=== PATIENT | male | born 1950 | race African-American/Black ===

== ENCOUNTER 2023-10-08 02:25 | Inpatient (IN) | payer BC ==
[~2023-10-08] VITALS: Ht 172.7 cm; Wt 72.1 kg
[2023-10-08] MEDS: MORPHINE SULFATE 4 MG/ML INJ (FOR IV/IM USE) IV STA (03:04)
[2023-10-08] MEDS: SODIUM CHLORIDE 0.9% 1,000 ML IV ONE (03:04)
[2023-10-08] MEDS: ONDANSETRON HCL 4MG/2ML INJ IV STA (03:04)
[2023-10-08 03:17] LABS: BASOPHILS % 0.2 % (0.0-2.0); CHLORIDE 105 mEq/L (98-107); EOSINOPHILS % 0.7 % (0.0-5.0); HEMATOCRIT. 46.6 % (42.0-52.0); HEMOGLOBIN. 15.5 g/dL (14.0-18.0); LYMPHOCYTES % 11.8 % (20.0-50.0); MEAN CORPUSCULAR HEMOGLOBIN 31.1 pg (28.0-32.0); MEAN CORPUSCULAR HGB CONC 33.3 g/dL (31.0-37.0); MEAN CORPUSCULAR VOLUME 93.5 fL (80.0-94.0); MEAN PLATELET VOLUME 7.5 fl (7.4-10.4); MONOCYTES % 3.1 % (2.0-8.0); NEUTROPHILS % 84.2 % (40.0-76.0); PLATELET 257 x1000/uL (130-400); POTASSIUM 3.1 mEq/L (3.5-5.1); RED BLOOD CELL COUNT 4.98 mill/uL (4.7-6.1); RED CELL DISTRIBUTION WIDTH 13.9 % (11.6-14.6); SODIUM 139 mEq/L (136-145)
[2023-10-08 03:18] LABS: CALCIUM 9.8 mg/dL (8.7-10.4); CARBON DIOXIDE 25 mEq/L (21-32)
[2023-10-08 03:23] LABS: GLUCOSE 161 mg/dL (70-105); UREA NITROGEN BLOOD 13 mg/dL (9-23)
[2023-10-08 03:25] LABS: ALANINE AMINOTRANSFERASE 14 IU/L (10-49); ALBUMIN 4.9 g/dL (3.2-4.8); ASPARTATE AMINOTRANSFERASE 23 IU/L (<34); BILIRUBIN DIRECT 0.2 mg/dL (<=3.0); BILIRUBIN TOTAL 0.7 mg/dL (0.1-1.0); PROTEIN TOTAL 7.7 g/dL (6.0-8.3)
[2023-10-08 03:29] LABS: LACTIC ACID 3.6 mmol/L (0.4-2.0)
[2023-10-08 10:17] LABS: CLARITY URINE CLEAR (CLEAR); COLOR URINE YELLOW (YELLOW); GLUCOSE URINE 3+ (NEGATIVE); KETONES URINE 2+ (NEGATIVE); LEUKOCYTE ESTERASE URINE NEGATIVE (NEGATIVE); NITRITE URINE NEGATIVE (NEGATIVE); OCCULT BLOOD URINE NEGATIVE (NEGATIVE); PH URINE 7.5 (4.5-8.0); PROTEIN URINE NEGATIVE (NEGATIVE); UROBILINOGEN URINE 0.2 E.U./dL (0.2-1.0)
[2023-10-08 10:31] LABS: RBC URINE 0-2 /hpf (0-2); WBC URINE 0-2 /hpf (0-2)
[2023-10-08 10:32] LABS: BACTERIA URINE TRACE; SQUAMOUS EPITHELIAL CELL URINE RARE /lpf (RARE/1+); YEAST URINE NONE SEEN
[2023-10-08] MEDS ORDERED: DOCUSATE SODIUM 100MG CAPSULE PO PRN (14:45)
[2023-10-08] MEDS ORDERED: ACETAMINOPHEN 325MG TABLET PO PRN ×2 (14:45)
[2023-10-08] MEDS ORDERED: CLONIDINE 0.1MG TABLET PO PRN (14:45)
[2023-10-08] MEDS ORDERED: IPRATROPIUM/ALBUTEROL 0.5-3(2.5)MG/3ML NEB HHN PRN (14:45)
[2023-10-08] MEDS: TAMSULOSIN HCL 0.4MG SR CAPSULE PO SCH (15:09)
[2023-10-08] MEDS: POTASSIUM CHLORIDE 20MEQ TABLET SR PO NR (15:09)
[2023-10-08] MEDS ORDERED: DEXTROSE 50% WATER 50ML SYRINGE IV PRN (15:15)
[2023-10-08] MEDS: BLOOD SUGAR DIAGNOSTIC STRIP TEST SCH (17:13)
[2023-10-08] MEDS: INSULIN LISPRO 100 UNITS/ML SUBCUT SCH (17:15)
[2023-10-08 21:28] LABS: T4 FREE 1.41 ng/dL (0.89-1.76)
[2023-10-08 21:29] LABS: THYROID STIMULATING HORMONE 0.81 uIU/mL (0.55-4.78)
[2023-10-08] MEDS ORDERED: HYDRALAZINE HCL 25MG TABLET PO SCH (22:00)
[2023-10-08] MEDS: HYDRALAZINE HCL 25MG TABLET PO SCH (22:22)
[2023-10-08] MEDS: DILTIAZEM HCL 30MG TABLET PO SCH (22:23)
[2023-10-09 01:46] LABS: CREATINE KINASE MB FRACTION 5.2 ng/mL (0.5-3.6); TROPONIN I HIGH SENSITIVITY 36 ng/L (3.0-53)
[2023-10-09 04:23] VITALS: BP 132/78; PULSE 80; RESP 18; TEMP 36.4736
[2023-10-09 08:00] VITALS: BP 125/72; PULSE 106; RESP 18; TEMP 36.05844; O2SAT 96
[2023-10-09] MEDS: PANTOPRAZOLE SODIUM 40 MG/VIAL IV SCH (08:23)
[2023-10-09] MEDS: ONDANSETRON HCL 4MG/2ML INJ IV PRN (08:31)
[2023-10-09 10:09] LABS: HEMATOCRIT. 44.1 % (42.0-52.0); HEMOGLOBIN. 14.7 g/dL (14.0-18.0); MEAN CORPUSCULAR HEMOGLOBIN 30.9 pg (28.0-32.0); MEAN CORPUSCULAR HGB CONC 33.3 g/dL (31.0-37.0); MEAN CORPUSCULAR VOLUME 92.7 fL (80.0-94.0); MEAN PLATELET VOLUME 7.6 fl (7.4-10.4); PLATELET 228 x1000/uL (130-400); RED BLOOD CELL COUNT 4.76 mill/uL (4.7-6.1); RED CELL DISTRIBUTION WIDTH 14.4 % (11.6-14.6); WHITE BLOOD COUNT 15.9 x1000/uL (4.5-11.0)
[2023-10-09 10:16] LABS: PROTHROMBIN TIME 11.2 sec (9.6-11.0)
[2023-10-09 10:20] LABS: CARBON DIOXIDE 21 mEq/L (21-32); CHLORIDE 98 mEq/L (98-107); POTASSIUM 3.5 mEq/L (3.5-5.1); SODIUM 131 mEq/L (136-145)
[2023-10-09 10:21] LABS: CALCIUM 9.4 mg/dL (8.7-10.4)
[2023-10-09 10:23] LABS: CREATINE KINASE MB FRACTION 6.1 ng/mL (0.5-3.6)
[2023-10-09 10:24] LABS: DIFFERENTIAL COMMENT 1
[2023-10-09 10:25] LABS: CREATININE 0.8 mg/dL (0.6-1.3)
[2023-10-09 10:26] LABS: GLUCOSE 114 mg/dL (70-105); TRIGLYCERIDE 53 mg/dL (0-150); UREA NITROGEN BLOOD 13 mg/dL (9-23)
[2023-10-09 10:27] LABS: ALANINE AMINOTRANSFERASE 20 IU/L (10-49); ALBUMIN 4.6 g/dL (3.2-4.8); ASPARTATE AMINOTRANSFERASE 40 IU/L (<34); LDL CHOLESTEROL 95 mg/dL (5-100)
[2023-10-09 10:28] LABS: BILIRUBIN DIRECT 0.3 mg/dL (<=3.0); CHOLESTEROL 150 mg/dL (<200); HDL CHOLESTEROL 49 mg/dL (>55)
[2023-10-09 12:00] VITALS: BP 132/64; PULSE 96; RESP 18; TEMP 36.114; O2SAT 98
[2023-10-09 12:32] LABS: *AMPHETAMINES SCREEN URINE NEGATIVE (NEGATIVE); *BARBITURATES SCREEN URINE NEGATIVE (NEGATIVE); *BENZODIAZEPINES SCREEN URINE NEGATIVE (NEGATIVE); *COCAINE SCREEN URINE NEGATIVE (NEGATIVE); METHADONE URINE SCREEN NEGATIVE (NEGATIVE); OPIATES URINE SCREEN PRESUMPTIVE POSITIVE (NEGATIVE)
[2023-10-09 12:33] LABS: CANNABINOID URINE SCREEN PRESUMPTIVE POSITIVE (NEGATIVE); ECSTASY MDMA SCREEN URINE NEGATIVE (NEGATIVE); PHENCYCLIDINE URINE SCREEN NEGATIVE (NEGATIVE)
[2023-10-09 17:51] LABS: PLATELET ESTIMATE NORMAL
[2023-10-09] MEDS ORDERED: NALOXONE HCL 0.4MG/ML VIAL IV PRN (20:45)
[2023-10-09] MEDS: ZOLPIDEM TARTRATE 5MG TABLET PO PRN (22:21)
[2023-10-10] MEDS: HYDROCODONE/ACETAMINOPHEN 10/325MG TABLET PO PRN (03:48)
[2023-10-10 08:00] VITALS: BP 137/76; PULSE 93; RESP 16; TEMP 36.114; TEMP 36.11400; O2SAT 96
[2023-10-10] MEDS ORDERED: TAMS-11 MT (11:52)
[2023-10-10] MEDS ORDERED: DILT30TA37 MT (11:52)
[2023-10-10] MEDS ORDERED: HYDR50TA40 MT (11:52)
[2023-10-10] MEDS ORDERED: CIPR-263 MT (11:52)
[2023-10-10 13:58] VITALS: BP 137/76; PULSE 93; TEMP 97; O2SAT 96
[2023-10-10 14:00] VITALS: PULSE 93
== END 2023-10-10 16:10 | disposition home or self-care (01) | DRG 392 ==
LOC: ER 02:25 → 5WST 03:38 → EDBEDREQ 04:32 → 7EST 10-09 00:47
PROVIDERS: ADMIT Internal Medicine; ATTEND Internal Medicine
DX: R11.2 Nausea with vomiting, unspecified (principal); E87.20 Acidosis, unspecified; E11.9 Type 2 diabetes mellitus without complications; E78.5 Hyperlipidemia, unspecified; E87.6 Hypokalemia; F12.90 Cannabis use, unspecified, uncomplicated; I10 Essential (primary) hypertension; M48.061 Spinal stenosis, lumbar region without neurogenic claudication
CPT/HCPCS: 36415; 71045; 74177; 80048; 80061; 80076; 80305; 81003; 82550; 82553; 82962; 83036; 83605; 83735; 83880; 84100; 84145; 84439; 84443; 84480; 84484; 85025; 85379; 93005; 99285; J2270; J2405; J2470; J7030